=== PATIENT | female | born 1930 | race Two or more races ===

== ENCOUNTER 2018-01-05 13:31 | Outpatient (CLI) | payer OTHER ==
[~2018-01-05 13:31] MED LIST: ADVAIR 2501 DISK W/1; ALBUTEROL0.63 MG/3; ASTELIN137 MCG; CIPRO500 MG PO; COL-RITE100 MG PO; CRESTOR5 MG PO; FLAGYL500MG PO; FOLIC ACID1 MG PO; INTESTINEX1 CA1 PO; MICARDIS40 MG PO; NEXIUM I.V20 MG/VIAL IV; OPTIVE EYE DROP15 ML OP; PREDNISONE10 MG PO; RESTASIS32 EA OP; SINGULAIR10 MG PO; SYNTHROID50 MCG PO; SYNTHROID75 MCG PO; ZANTAC150 M3 PO; ZOCOR20 MG PO
== END 2018-01-05 13:37 | disposition home or self-care (01) ==
LOC: MAMO-SONO 13:31
DX: Z12.31 Encounter for screening mammogram for malignant neoplasm of breast (principal); N60.29 Fibroadenosis of unspecified breast

== ENCOUNTER 2019-01-03 13:19 | Emergency (ER) | payer OTHER ==
[~2019-01-03] VITALS: Ht 157.5 cm; Wt 52.2 kg
== END 2019-01-03 18:03 | disposition home or self-care (01) ==
LOC: ER 13:19
DX: B34.9 Viral infection, unspecified (principal)

== ENCOUNTER 2019-03-30 09:36 | Emergency (ER) | payer OTHER ==
[~2019-03-30] VITALS: Ht 152.4 cm; Wt 52.2 kg
[2019-03-30] MEDS ORDERED: COREG CR10 MG (10:03)
[2019-03-30] MEDS ORDERED: FOSAMAX70 MG (10:03)
[2019-03-30] MEDS ORDERED: SPIRIVA RESPIMAT4 G1 (10:04)
== END 2019-03-30 13:46 | disposition home or self-care (01) ==
LOC: ER 09:36
DX: J44.9 Chronic obstructive pulmonary disease, unspecified (principal)

== ENCOUNTER 2019-05-05 15:26 | Emergency (ER) | payer OTHER ==
[~2019-05-05] VITALS: Ht 152.4 cm; Wt 52.2 kg
[~2019-05-05 15:26] MED LIST changes: +COREG CR10 MG; +FOSAMAX70 MG; +SPIRIVA RESPIMAT4 G1
== END 2019-05-05 20:41 | disposition home or self-care (01) ==
LOC: ER 15:26
DX: J45.998 Other asthma (principal); R07.89 Other chest pain

== ENCOUNTER 2020-06-16 10:08 | Outpatient (CLI) | payer OTHER | END 2020-06-16 10:21 | disposition home or self-care (01) | LOC: MAMO-SONO 10:08 | PROVIDERS: ATTEND Internal Medicine | DX: Z12.31 Encounter for screening mammogram for malignant neoplasm of breast (principal); N64.59 Other signs and symptoms in breast ==

== ENCOUNTER 2020-06-19 10:42 | Outpatient (CLI) | payer OTHER | END 2020-06-19 10:53 | disposition home or self-care (01) | LOC: NUCLEAR 10:42 | PROVIDERS: ATTEND Internal Medicine | DX: M81.0 Age-related osteoporosis without current pathological fracture (principal) ==

== ENCOUNTER 2020-10-23 12:19 | Emergency (ER) | payer OTHER ==
[~2020-10-23] VITALS: Ht 149.9 cm; Wt 52.2 kg
[2020-10-23] MEDS ORDERED: ATACAND4 MG (12:29)
[2020-10-23] MEDS ORDERED: DUI500 PO (15:01)
== END 2020-10-23 17:04 | disposition home or self-care (01) ==
LOC: ER 12:19
DX: S01.121A Laceration with foreign body of right eyelid and periocular area, initial encounter (principal); S50.811A Abrasion of right forearm, initial encounter; S80.211A Abrasion, right knee, initial encounter; S30.0XXA Contusion of lower back and pelvis, initial encounter; W01.198A Fall on same level from slipping, tripping and stumbling with subsequent striking against other object, initial encounter; Y93.89 Activity, other specified; Y92.511 Restaurant or cafe as the place of occurrence of the external cause; Y99.8 Other external cause status

== ENCOUNTER 2020-11-16 00:50 | Emergency (ER) | payer OTHER ==
[~2020-11-16] VITALS: Ht 154.9 cm; Wt 52.2 kg
[~2020-11-16 00:50] MED LIST changes: +ATACAND4 MG; +DUI500 PO
[2020-11-16] MEDS ORDERED: ZOFRAN4 MG PO (03:01)
== END 2020-11-16 03:10 | disposition home or self-care (01) ==
LOC: ER 00:50
DX: R06.02 Shortness of breath (principal); R11.0 Nausea

== ENCOUNTER 2021-01-05 15:41 | Emergency (ER) | payer OTHER ==
[~2021-01-05] VITALS: Ht 152.4 cm; Wt 52.2 kg
[~2021-01-05 15:41] MED LIST changes: +ZOFRAN4 MG PO
[2021-01-05] MEDS ORDERED: MONTELUKAST SODI4 M1 (16:24)
[2021-01-05] MEDS ORDERED: BIOTIN5000 MCG (16:25)
[2021-01-05] MEDS ORDERED: MAXIMUM D3325 MCG (16:25)
== END 2021-01-05 21:45 | disposition home or self-care (01) ==
LOC: ER 15:41
DX: R42 Dizziness and giddiness (principal)

== ENCOUNTER → 2021-04-17 | Emergency (ER) | payer OTHER ==
[~2021-04-17] VITALS: Ht 152.4 cm; Wt 54.4 kg
[~2021-04-17] MED LIST changes: +BIOTIN5000 MCG; +MAXIMUM D3325 MCG; +MONTELUKAST SODI4 M1; +SYNTHROID50 MCG; +TESSALON PERLE100 M1 PO
== END | disposition home or self-care (01) ==
LOC: ER 05:37
DX: R06.02 Shortness of breath (principal); R05 Cough; R10.9 Unspecified abdominal pain; R11.2 Nausea with vomiting, unspecified; R42 Dizziness and giddiness; Z03.818 Encounter for observation for suspected exposure to other biological agents ruled out

== ENCOUNTER 2021-05-12 11:42 | Emergency (ER) | payer OTHER ==
[~2021-05-12] VITALS: Ht 152.4 cm; Wt 53.5 kg
[~2021-05-12 11:42] MED LIST changes: -SYNTHROID50 MCG
[2021-05-12] MEDS ORDERED: SYNTHROID50 MCG (11:54)
== END 2021-05-12 15:45 | disposition home or self-care (01) ==
LOC: ER 11:42 → EDBD 11:46 → ER 11:46
DX: M54.2 Cervicalgia (principal); M25.552 Pain in left hip; Z03.818 Encounter for observation for suspected exposure to other biological agents ruled out; I10 Essential (primary) hypertension

== ENCOUNTER 2021-05-16 01:24 | Emergency (ER) | payer OTHER ==
[~2021-05-16] VITALS: Ht 152.4 cm; Wt 53.5 kg
[~2021-05-16 01:24] MED LIST changes: +SYNTHROID50 MCG
== END 2021-05-16 02:00 | disposition home or self-care (01) ==
LOC: ER 01:24 → EDBD 01:26 → ER 01:26
DX: M25.552 Pain in left hip (principal); M16.12 Unilateral primary osteoarthritis, left hip; Z03.818 Encounter for observation for suspected exposure to other biological agents ruled out

== ENCOUNTER → 2021-06-10 09:13 | Outpatient (CLI) | payer OTHER ==
[~2021-06-10 09:13] MED LIST changes: +AMOX-CLAV 875-1 EACH PO
== END | disposition home or self-care (01) ==
LOC: LAB 09:13 → EDBD 09:13
PROVIDERS: ATTEND Orthopaedic Surgery
DX: M85.89 Other specified disorders of bone density and structure, multiple sites (principal); E88.89 Other specified metabolic disorders; M81.8 Other osteoporosis without current pathological fracture; E83.42 Hypomagnesemia; E56.1 Deficiency of vitamin K; E03.8 Other specified hypothyroidism

== ENCOUNTER 2021-06-11 16:24 | Emergency (ER) | payer OTHER ==
[~2021-06-11] VITALS: Ht 152.4 cm; Wt 52.2 kg
[~2021-06-11 16:24] MED LIST changes: -AMOX-CLAV 875-1 EACH PO
[2021-06-11] MEDS ORDERED: AMOX-CLAV 875-1 EACH PO (20:22)
== END 2021-06-11 20:39 | disposition home or self-care (01) ==
LOC: ER 16:24
DX: S81.022A Laceration with foreign body, left knee, initial encounter (principal); S00.83XA Contusion of other part of head, initial encounter; M54.2 Cervicalgia; W18.09XA Striking against other object with subsequent fall, initial encounter; Y93.89 Activity, other specified; Y92.531 Health care provider office as the place of occurrence of the external cause; Y99.8 Other external cause status

== ENCOUNTER 2021-06-21 12:29 | Emergency (ER) | payer OTHER ==
[~2021-06-21] VITALS: Ht 152.4 cm; Wt 52.2 kg
[~2021-06-21 12:29] MED LIST changes: +AMOX-CLAV 875-1 EACH PO
== END 2021-06-22 | disposition home or self-care (01) ==
LOC: ER 12:29
DX: Z48.02 Encounter for removal of sutures (principal)

== ENCOUNTER 2021-07-16 08:15 | Emergency (ER) | payer OTHER ==
[~2021-07-16] VITALS: Ht 152.4 cm; Wt 52.2 kg
[2021-07-16] MEDS ORDERED: SYNTHROID75 MCG (08:36)
[2021-07-16] MEDS ORDERED: CRESTOR5 MG (08:36)
== END 2021-07-16 14:29 | disposition home or self-care (01) ==
LOC: ER 08:15
DX: B34.9 Viral infection, unspecified (principal)

== ENCOUNTER 2021-10-21 06:23 | Emergency (ER) | payer OTHER ==
[~2021-10-21] VITALS: Ht 152.4 cm; Wt 53.5 kg
[~2021-10-21 06:23] MED LIST changes: +CRESTOR5 MG; +SYNTHROID75 MCG
== END 2021-10-21 14:00 | disposition home or self-care (01) ==
LOC: ER 06:23
DX: J06.9 Acute upper respiratory infection, unspecified (principal); B34.9 Viral infection, unspecified

== ENCOUNTER → 2021-12-15 | Emergency (ER) | payer OTHER ==
[~2021-12-15] VITALS: Ht 152.4 cm; Wt 53.5 kg
[~2021-12-15] MED LIST changes: +ADVAIR HFA 230/12 GM; +FLONASE16 GM
== END | disposition home or self-care (01) ==
LOC: ER 08:05
DX: R42 Dizziness and giddiness (principal); I10 Essential (primary) hypertension; Z20.822 Contact with and (suspected) exposure to COVID-19; Z88.8 Allergy status to other drugs, medicaments and biological substances

== ENCOUNTER 2022-01-12 08:59 | Emergency (ER) | payer OTHER ==
[~2022-01-12] VITALS: Ht 152.4 cm; Wt 52.2 kg
[2022-01-12] MEDS ORDERED: DUI500 PO (10:13)
== END 2022-01-12 10:21 | disposition home or self-care (01) ==
LOC: ER 08:59
DX: S51.812A Laceration without foreign body of left forearm, initial encounter (principal); W19.XXXA Unspecified fall, initial encounter; Y93.89 Activity, other specified; Y92.89 Other specified places as the place of occurrence of the external cause; I10 Essential (primary) hypertension; E03.9 Hypothyroidism, unspecified; Z88.1 Allergy status to other antibiotic agents

== ENCOUNTER 2022-05-31 19:26 | Emergency (ER) | payer OTHER ==
[~2022-05-31] VITALS: Ht 152.4 cm; Wt 49.9 kg
== END 2022-06-01 04:44 ==
LOC: ER 19:26
DX: J44.9 Chronic obstructive pulmonary disease, unspecified (principal); Z20.822 Contact with and (suspected) exposure to COVID-19; Z88.8 Allergy status to other drugs, medicaments and biological substances

== ENCOUNTER 2022-08-17 13:13 | Outpatient (CLI) | payer OTHER | END 2022-08-17 13:23 | disposition home or self-care (01) | LOC: PPH VACUNA 13:13 | PROVIDERS: ATTEND Emergency Medicine Pediatric Emergency Medicine | DX: Z23 Encounter for immunization (principal) ==